=== PATIENT | male | born 1960 | race Caucasian/White ===

== ENCOUNTER 2019-09-27 12:24 | Emergency (ER) | payer BC, SELFPAY ==
[2019-09-27 12:37] VITALS: BP 140/95; PULSE 70; RESP 18; TEMP 36.5; O2SAT 97
--- NOTE | 2019-09-27 12:42 | ED.GENADULT ---
HPI - General Adult General Chief complaint: Nausea/Vomiting/Diarrhea Stated complaint: nauseau/achey Time Seen by Provider: 09/27/19 12:43 Source: patient and RN notes reviewed Mode of arrival: ambulatory Limitations: no limitations History of Present Illness HPI narrative: This is a 59 years old male presented office for evaluation of diarrhea since last night.Associate with generalized body aches, little congestions and nauseous. Denies vomiting. He able to keep fluids down. He did not eat anything for breakfast. His and grandkids are sick with similar symptoms. He would like a work excuse. Related Data Allergies Allergy/AdvReac Type Severity Reaction Status Date / Time No Known Allergies Allergy Verified 09/27/19 12:38 Review of Systems Review of Systems: Narrative: CONSTITUTIONAL: Denies fever. Report feeling achy ENT: Denies sore throat or ears pain CARDIOVASCULAR: Denies chest pain RESPIRATORY: Denies dyspnea, wheezing, cough GASTROINTESTINAL: Denies abdominal pain,vomiting or bloody stools GENITOURINARY: Denies urinary symptoms SKIN: Denies rash MUSCULOSKELETAL: Denies acute back pain NEUROLOGIC: Denies lightheaded PMFSH Surgical History Surgical History H/O rotator cuff surgery (~2009) Family History Family History Father Carcinoma of colon, Onset Age: 78 Social History Social History (Updated 09/27/19 @ 12:54 by HUMERA Mtz) Smoking status: Never smoker Alcohol intake: current Comments At time of signature, I agree with nursing past medical, surgical, social and family history. There is no relevant family history pertinent to the presenting complaint. Exam Narrative: Exam Narrative: GENERAL: This is a well-nourished, well-developed patient, in no apparent distress. EYES: Sclera clear/white. Vision is grossly intact. EARS: External ears normal, auditory canals clear and without drainage, TMs normal without perforation. Hearing grossly intact. NOSE: External nose normal with no obvious nasal discharge, nares without redness, no rhinorrhea. THROAT: Mucous membranes moist, posterior pharynx clear. NECK: Neck supple, non-tender without lymphadenopathy, masses or thyromegaly. CARDIOVASCULAR: Regular rate and rhythm without murmurs, gallops, or rubs. RESPIRATORY: Clear to auscultation. Breath sounds equal bilaterally. No wheezes, rales, or rhonchi. GASTROINTESTINAL:obese, Abdomen soft, non-tender, nondistended. Bowel sounds are active. No hepato-splenomegaly, or palpable masses. No guarding. SKIN: warm, intact with no suspicious lesions or rash, good texture and turgor. NEURO: awake, alert, and oriented to person, place and time. There were no obvious focal neurologic abnormalities. Steady gait Vernon Coma Scale Eye Opening: Spontaneous 4 Vernon Coma Scale Motor: Obeys Commands 6 Vernon Coma Scale Verbal: Oriented 5 Course Vital Signs Vital signs: Vital Signs Temperature 97.7 F 09/27/19 12:37 Pulse Rate 70 09/27/19 12:37 Respiratory Rate 09/27/19 12:37 Blood Pressure 140/95 H 09/27/19 12:37 Pulse Oximetry 97 09/27/19 12:37 Temperature 97.7 F 09/27/19 12:37 Pulse Rate 70 09/27/19 12:37 Respiratory Rate 09/27/19 12:37 Blood Pressure 140/95 H 09/27/19 12:37 Pulse Oximetry 97 09/27/19 12:37 Medical Decision Making MDM Narrative Medical decision making narrative: Discharge instructions reviewed with patient, as well as provided in writing per nursing staff. The instructions also include specific and strict return/GO TO THE ER as well as f/u information. All questions have been answered, and the patient deny any further questions with discharge and discharge plan. Vital Signs Vital Signs: Vital Signs Temperature 97.7 F 09/27/19 12:37 Pulse Rate 70 09/27/19 12:37 Respiratory Rate 18 09/27/19
== END 2019-09-27 12:54 | disposition home or self-care (01) ==
PROVIDERS: Emergency Provider Nurse Practitioner; PCP Family Medicine
DX: R19.7 Diarrhea, unspecified (principal); R03.0 Elevated blood-pressure reading, without diagnosis of hypertension
CPT/HCPCS: 87804; 99212; G0463

== ENCOUNTER 2020-06-26 12:30 | Emergency (ER) | payer BC, SELFPAY ==
--- NOTE | ~2020-06-26 | XR_ITS ---
EXAMINATION: XR chest 1V portable DATE: 06/26/2020 13:08 INDICATION: Cough. COVID-19 positive. TECHNIQUE: A single frontal view of the chest was obtained. COMPARISON: None. FINDINGS: There are patchy airspace opacities in all right lung zones and in left lower lung zone. No pleural effusion or pneumothorax. The heart size is normal. IMPRESSION: 1. Patchy airspace opacities in right lung and left lower lung zone, consistent with pneumonia. Reviewed, dictated and finalized at location A. [employer]
[2020-06-26 12:38] VITALS: BP 148/99; PULSE 80; RESP 16; TEMP 36.9; O2SAT 97
[2020-06-26 13:24] LABS: Basophils Percent Auto 0.2 % (0.2-1.2); Eosinophils Absolute Auto 0.1 K/mm3 (0-0.3); Eosinophils Percent Auto 2.7 % (0-4.4); Hematocrit 42.4 % (42.0-52.0); Hemoglobin 14.6 g/dL (14.0-18.0); Immature Granulocyte Absolute 0.02 K/mm3 (0.00-0.031); Immature Granulocyte Percent A 0.4 % (0-0.5); Lymphocytes Percent Auto 26.6 % (18.3-44.2); Mean Corpuscular HGB Conc 34.4 g/dl (32-36); Mean Corpuscular Hemoglobin 31.7 pg (26-34); Mean Corpuscular Volume 92.2 fl (80-100); Monocytes Absolute Auto 0.4 K/mm3 (0.1-0.6); Neutrophils Absolute Auto 2.8 K/mm3 (1.3-6.7); Neutrophils Percent Auto 62.1 % (45.5-73.1); Platelet Count Result 166 k/mm3 (150-375); Red Cell Distribution Width 12.2 % (11.5-14.5); White Blood Count 4.5 K/mm3 (4.5-10.0)
[2020-06-26 13:30] LABS: Alanine Aminotransferase 26 U/L (4-50); Alkaline Phosphatase 79 U/L (38-126); Anion Gap 9 mmol/L (8-16); Aspartate Amino Transferase 34 U/L (17-59); Bilirubin,Total 0.8 mg/dL (0.2-1.3); Blood Urea Nitrogen 13 mg/dL (9-20); Calcium 8.9 mg/dL (8.4-10.2); Carbon Dioxide 27 mmol/L (22-30); Chloride 100 mmol/L (98-107); Estimated CRCL calculation 98 ml/min; Estimated Glomerular Filt Rate > 60; Glucose 103 mg/dL (75-110); Potassium 4.4 mmol/L (3.4-5.0); Sodium 136 mmol/L (137-145)
[2020-06-26 13:31] LABS: D Dimer 0.46 ug/mL (<0.48)
[2020-06-26 13:40] VITALS: O2SAT 19
[2020-06-26 13:41] VITALS: BP 144/96; PULSE 84; RESP 18; O2SAT 98
--- NOTE | 2020-06-26 13:44 | ED.GENADULT ---
HPI - General Adult General Chief complaint: Upper Respiratory Infection Stated complaint: COVID + 06/18 STILL SYMPTOMATIC Time Seen by Provider: 06/26/20 12:48 Source: RN notes reviewed History of Present Illness HPI narrative: Patient presents emergency department from home for shortness of breath. Patient states he was diagnosed with COVID-19 approximately 1 week ago. He states since that time he said intermittent hot and cold flashes as well as a persistent cough and shortness of breath with exertion. He denies any chest pain abdominal pain nausea vomiting or any other symptoms. He called his PCP today because he not been feeling better and they directed him to come to the emergency department for further evaluation. Related Data Allergies Allergy/AdvReac Type Severity Reaction Status Date / Time No Known Allergies Allergy Verified 03/26/20 11:00 Review of Systems Review of Systems: Narrative: Gen.: See HPI Eyes: Denies eye pain or visual change ENT: Denies congestion Respiratory: Reports shortness of breath and cough CV: Denies chest pain or palpitations GI: Denies abdominal pain nausea, emesis or diarrhea Musculoskeletal: Denies back pain or muscle pain Neuro: Denies numbness, tingling, weakness or focal weakness Skin: Denies rash Except as documented, all other systems reviewed and negative PMFSH Past Medical History Medical History (Updated 06/26/20 @ 15:14 by Raimundo Nice DO) Patient denies significant medical history Surgical History Surgical History H/O rotator cuff surgery (~2009) Family History Family History Father Carcinoma of colon, Onset Age: 78 Social History Social History Smoking status: Never smoker Alcohol intake: current Exam Narrative: Exam Narrative: APPEARANCE: No acute distress, nontoxic, resting in bed EYES: EOMI HEENT: Normocephalic, atraumatic, OMM RESPIRATORY: No respiratory distress Clear to auscultation bilaterally with no rhonchi wheezing or rales. CARDIOVASCULAR: Regular rate and rhythm without murmurs rubs or gallops. ABDOMINAL: Soft, nontender, nondistended, no rebound or guarding MUSCULOSKELETAl: Moves all extremities. No clubbing, cyanosis or edema. NEURO: Awake and alert. Following commands, speech normal, no focal deficits SKIN:: Warm, dry. No rashes lesions or abrasions PSYCHIATRIC: Normal affect/mood, Course Course Emergency Course: Discussed with patient results of workup and diagnosis. Discussed need for follow-up with primary care, proper use of medication, and reasons to return to the emergency department. Patient understands and agrees to current treatment plan Vital Signs Vital signs: Vital Signs Temperature 98.4 F 06/26/20 12:38 Pulse Rate 80 06/26/20 12:38 Respiratory Rate 16 06/26/20 12:38 Blood Pressure 148/99 H 06/26/20 12:38 Pulse Oximetry 97 06/26/20 12:38 Temperature 98.4 F 06/26/20 12:38 Pulse Rate 84 06/26/20 13:41 Respiratory Rate 18 06/26/20 13:41 Blood Pressure 144/96 H 06/26/20 13:41 Pulse Oximetry 98 06/26/20 13:41 Medical Decision Making Vital Signs Vital Signs: Vital Signs Temperature 98.4 F 06/26/20 12:38 Pulse Rate 80 06/26/20 12:38 Respiratory Rate 16 06/26/20 12:38 Blood Pressure 148/99 H 06/26/20 12:38 Pulse Oximetry 97 06/26/20 12:38 Temperature 98.4 F 06/26/20 12:38 Pulse Rate 84 06/26/20 13:41 Respiratory Rate 18 06/26/20 13:41 Blood Pressure 144/96 H 06/26/20 13:41 Pulse Oximetry 98 06/26/20 13:41 Lab Data Result diagrams: 06/26/20 13:12 06/26/20 13:11 Labs: Lab Results 06/26/20 06/26/20 06/26/20 Range/Units 13:11 13:11 13:12 WBC 4.5 (4.5-10.0) K/mm3 RBC 4.60 (4.6-6.20) M/mm3 Hgb 14.6 (14.0-18.0) g/dL
[2020-06-26] MEDS: ALBUTEROL SULFATE (*SP) AEROSOL 1 PUFF 2 PUFF INHALATION (13:48)
[2020-06-26 15:22] VITALS: BP 140/89; PULSE 89; RESP 17; O2SAT 99
[2020-06-26] MEDS: predniSONE 20 MG TABLET 60 MG PO (15:22)
== END 2020-06-26 15:24 | disposition home or self-care (01) ==
PROVIDERS: Emergency Provider Emergency Medicine; PCP Family Medicine
DX: U07.1 COVID-19 (principal); J12.89 Other viral pneumonia
CPT/HCPCS: 36415; 71045; 80053; 85025; 85380; 99283; A9270; J7512

== ENCOUNTER → 2021-06-30 07:35 | Outpatient (CLI) | payer BC, SELFPAY ==
[2021-06-30 18:36] LABS: SARS-CoV-2 RNA PCR Negative
== END ==
PROVIDERS: PCP Family Medicine; Visit Provider Family Medicine
DX: R51.9 Headache, unspecified (principal); Z20.822 Contact with and (suspected) exposure to COVID-19
CPT/HCPCS: C9803; U0003; U0005

== ENCOUNTER 2021-09-12 02:14 | Day surgery (SDC) | payer BC, SELFPAY ==
[2021-09-03 09:30] VITALS: BMI 38.0
--- NOTE | 2021-09-11 16:12 | WPDANESEPP ---
Anes - Eval Pre Procedure Procedure: Operation Date: 09/12/21 11:30 Proposed Procedures p Screening Colonoscopy - Car Barrientos MD Date/Time: 09/11/21 16:12 Pre Op Diagnosis: neoplasm screening Patient Data Age: 61 Gender: M Height: 1.83 m Weight: 127.3 kg Allergies Allergy/AdvReac Type Severity Reaction Status Date / Time No Known Allergies Allergy Verified 09/03/21 09:29 Home Medications Medication Instructions Recorded Confirmed Type sildenafil 100 mg tablet 100 mg PO DAILY PRN #14 tablet 08/21/21 09/03/21 Rx cholecalciferol (vitamin D3) 1,250 1,250 mcg PO WEEKLY #14 cap 08/25/21 09/03/21 Rx mcg (50,000 unit) capsule Patient hx anesthesia problems: none Family hx anesthesia problems: none Results Review: All pre-operative results and documents have been reviewed as part of the pre-operative evaluation. [facility], [facility] Past Medical History Medical History Patient denies significant medical history Sept. 2020 disectomy and fusion c4-c7 Surgical History Surgical History H/O rotator cuff surgery (~2009) S/P cervical spinal fusion Family History Family History Father Carcinoma of colon, Onset Age: 78 Social History Social History Smoking status: Never smoker Alcohol intake: current Alcohol use details: every 2 weeks when bowling Substance use: never Substance use type: does not use Living arrangements: with family Spiritual care concerns: No Exam Day of Procedure 09/11/21 16:12
--- NOTE | 2021-09-12 10:32 | WPDANESEPPF ---
Anes - Initial Pre Proc Eval Procedure: Operation Date: 09/12/21 11:30 Proposed Procedures p Screening Colonoscopy - Car Barrientos MD Date/Time: 09/12/21 10:32 Surgeon: Car Barrientos MD Pre Op Diagnosis: neoplasm screening Patient Data Age: 61 Gender: M Height: 1.83 m Weight: 127.3 kg Allergies Allergy/AdvReac Type Severity Reaction Status Date / Time No Known Allergies Allergy Verified 09/03/21 09:29 Home Medications Medication Instructions Recorded Confirmed Type sildenafil 100 mg tablet 100 mg PO DAILY PRN #14 tablet 08/21/21 09/03/21 Rx cholecalciferol (vitamin D3) 1,250 1,250 mcg PO WEEKLY #14 cap 08/25/21 09/03/21 Rx mcg (50,000 unit) capsule Patient hx anesthesia problems: none Family hx anesthesia problems: none Results Review: All pre-operative results and documents have been reviewed as part of the pre-operative evaluation. [facility] Past Medical History Medical History Patient denies significant medical history Sept. 2020 disectomy and fusion c4-c7 Surgical History Surgical History H/O rotator cuff surgery (~2009) S/P cervical spinal fusion Family History Family History Father Carcinoma of colon, Onset Age: 78 Social History Social History Smoking status: Never smoker Alcohol intake: current Alcohol use details: every 2 weeks when bowling Substance use: never Substance use type: does not use Living arrangements: with family Spiritual care concerns: No Anes - Eval Final PreProcedure Day of Procedure 09/12/21 10:32 Patient weight: obese Heart: regular rate and rhythm Lungs: clear to auscultation Airway: Mallampati scale class II Neurological: alert and oriented Last oral intake: >/= 8 hours ASA classification: III Emergent: no Anesthetic plan: proceed Anesthesia type and monitoring: general GIVS and standard monitoring Results Review: All pre-operative results and documents have been reviewed as part of the pre-operative evaluation. Informed Consent: The patient's anesthetic plan and its attendant risks and benefits were discussed with the patient/family/POA. Questions were solicited and answers provided to the satisfaction of the patient/family/POA.
[2021-09-12 10:34] VITALS: BP 129/84; PULSE 101; RESP 20; TEMP 36.8; O2SAT 95
--- NOTE | 2021-09-12 10:34 | WPDGICN ---
Assessment and Plan Assessment and plan (1) Family history of colon cancer in father: Code(s): Z80.0 - Family history of malignant neoplasm of digestive organs Status: Acute Assessment and Plan: Patient presents for neoplasia screening. Family history is significant his father had colon cancer. Plan is for surveillance colonoscopies at 5 year intervals further recommendations may be given after endoscopy. GI Consult Note Consult date/time: 09/12/21 10:34 HPI: Krishna Torres is a 61 year old male Presents for screening colonoscopy. Patient's current weight appetite bowel movements are normal. He denies abdominal pain. He has had no bleeding. Family history is significant that his father had colon cancer. He presents today for neoplasia screening. Review of Systems Review of Systems: All systems reviewed & are unremarkable except as noted in HPI and below PMFSH Past Medical History Medical History Patient denies significant medical history Apr. 2020 disectomy and fusion c4-c7 Surgical History Surgical History H/O rotator cuff surgery (~2009) S/P cervical spinal fusion Family History Family History Father Carcinoma of colon, Onset Age: 78 Social History Social History Smoking status: Never smoker Alcohol intake: current Alcohol use details: every 2 weeks when bowling Substance use: never Substance use type: does not use Living arrangements: with family Spiritual care concerns: No Meds Home Medications and Allergies Home Medications Medication Instructions Recorded Confirmed Type sildenafil 100 mg tablet 100 mg PO DAILY PRN #14 tablet 08/21/21 09/03/21 Rx cholecalciferol (vitamin D3) 1,250 1,250 mcg PO WEEKLY #14 cap 08/25/21 09/03/21 Rx mcg (50,000 unit) capsule Allergies Allergy/AdvReac Type Severity Reaction Status Date / Time No Known Allergies Allergy Verified 09/12/21 10:33 Exam Narrative: Physical exam reveals patient to be alert. Vital signs stable. HEENT exam is unremarkable. Patient is anicteric. Lungs are clear to auscultation and percussion. Heart is without murmur or extra sounds. Abdominal exam bowel sounds are present soft nontender with no organomegaly. Digital external rectal exam is normal.
[2021-09-12] MEDS: LACTATED RINGERS 1,000 ML 150 ML IV CONT (10:48)
[2021-09-12 11:06] VITALS: BP 92/62; PULSE 75; RESP 15; O2SAT 92
[2021-09-12 11:16] VITALS: BP 99/68; PULSE 77; RESP 18; O2SAT 94
[2021-09-12 11:26] VITALS: BP 107/78; PULSE 67; RESP 17; O2SAT 95
== END 2021-09-12 11:30 | disposition home or self-care (01) ==
PROVIDERS: PCP Family Medicine; Visit Provider Internal Medicine Gastroenterology
PROC: 0DJD8ZZ Inspection of Lower Intestinal Tract, Via Natural or Artificial Opening Endoscopic (ICD-10-PCS; CPT 45378; principal; 2021-09-12 11:30)
DX: Z12.11 Encounter for screening for malignant neoplasm of colon (principal); K57.30 Diverticulosis of large intestine without perforation or abscess without bleeding; Z80.0 Family history of malignant neoplasm of digestive organs; Z98.1 Arthrodesis status; E66.9 Obesity, unspecified; Z68.37 Body mass index [BMI] 37.0-37.9, adult
CPT/HCPCS: 45378; J2001; J2405; J2704; J7120

== ENCOUNTER → 2022-03-20 08:25 | Outpatient (CLI) | payer BC, SELFPAY ==
--- NOTE | ~2022-03-20 | XR_ITS ---
XR knee RT min 4V DATE: 03/20/2022 09:00 INDICATION: Right knee pain and swelling TECHNIQUE: [place], lateral and AP and PA views COMPARISON: None FINDINGS: There is moderate loss of height of the medial compartment space. There is mild periarticul ar spurring primarily at the patellofemoral joint. No fracture or dislocation or joint effusion. No radiopaque intra-articular loose body or chondrocalc inosis. No periosteal reaction or bone destruction. 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 IMPRESSION: Mild osteoarthritis involving primarily the medial and patellofemor al compartments
--- NOTE | ~2022-03-20 | XR_ITS ---
XR thoracic spine 3V DATE: 03/20/2022 09:00 INDICATION: Back pain, shoulder pain TECHNIQUE: AP, lateral, swimmer views COMPARISON: None FINDINGS: There is anterior and interbody surgical spinal fusion at C4-C7. There is minimal levoscoliosis of the thoracic spine. There is mild degenerative spurring of the thoracic spine. No fracture or dislocation or bone destruc tion is detected. The thoracic pedicles are intact. No paraspinal soft tissue thickening. IMPRESSION: Minimal levoscoliosis Mild degenerative spurring Reviewed, dictated and finalized at location B.
--- NOTE | ~2022-03-20 | XR_ITS ---
XR shoulder LT min 2V DATE: 03/20/2022 09:00 INDICATION: Cervical radiculopathy, left shoulder pain. TECHNIQUE: 4 views of left shoulder. COMPARISON: None FINDINGS: There is mild degenerative spurring at the acromioclavicular joint. Normal alignment at the acromioclavicular and glenohumeral joints. No fracture or dislocation, periosteal reaction or bone d estruction. No abnormal left shoulder soft tissue calcification. IMPRESSION: Mild degenerative change at left acromioclavicular joint Reviewed, dictated and finalized at location B.
--- NOTE | ~2022-03-20 | XR_ITS ---
XR_CERV2-3V_CR DATE: 03/20/2022 09:00 INDICATION: Cervical radiculopathy TECHNIQUE: AP, open-mouth, lateral views COMPARISON: None FINDINGS: Status post anterior and interbody spinal surgical fusion at C4-C7. The cervical vertebrae are normally aligned. There is prominent anterior spurring but relative preser vation of disc space at C2-3. C3-4 interspace is well preserved. C1 and C2 are normally aligned and the odontoid process is intact. No fracture or dislocation or lock ed facet or prevertebral soft tissue swelling. IMPRESSION: Status post anterior and interbody surgical spinal fusion at C4-C7 Reviewed, dictated and finalized at Location A. Reviewed, dictated and finalized at location B.
== END ==
PROVIDERS: PCP Physician Assistant; Visit Provider Physician Assistant
DX: M54.12 Radiculopathy, cervical region (principal); Z98.1 Arthrodesis status; M19.012 Primary osteoarthritis, left shoulder; M17.11 Unilateral primary osteoarthritis, right knee
CPT/HCPCS: 72040; 72072; 73030; 73564

== ENCOUNTER 2022-03-20 09:00 | Outpatient (CLI) | payer BC, SELFPAY ==
[2022-03-20 18:44] LABS: Alanine Aminotransferase 26 U/L (6-50); Albumin Level 4.1 g/dL (3.5-5.1); Alkaline Phosphatase 76 U/L (38-126); Anion Gap 8 mmol/L (8-16); Aspartate Amino Transferase 31 U/L (17-59); Bilirubin,Total 0.5 mg/dL (0.2-1.3); Blood Urea Nitrogen 20 mg/dL (9-20); Calcium 9.1 mg/dL (8.4-10.2); Carbon Dioxide 28 mmol/L (22-30); Chloride 103 mmol/L (98-107); Cholesterol 279 mg/dL (0-200); Estimated Glomerular Filt Rate > 60; Glucose 99 mg/dL (65-110); HDL Direct 50 mg/dL; Potassium 4.9 mmol/L (3.4-5.0); Sodium 139 mmol/L (137-145); Triglycerides 171 mg/dL (<150)
[2022-03-20 18:56] LABS: LDL Cholesterol Direct 188 mg/dL
[2022-03-20 19:34] LABS: Vitamin D 25 Hydroxy 49.1 ng/mL
== END 2022-03-20 09:01 | disposition home or self-care (01) ==
LOC: ANHGOSHLAB 09:01
PROVIDERS: PCP Physician Assistant; Visit Provider Physician Assistant
DX: E53.8 Deficiency of other specified B group vitamins (principal); E55.9 Vitamin D deficiency, unspecified; E78.5 Hyperlipidemia, unspecified
CPT/HCPCS: 36415; 80053; 80061; 82306; 82607

== ENCOUNTER 2022-04-17 01:49 | Emergency (ER) | payer OTHER, BC, SELFPAY ==
[2022-04-17] VITALS (31 sets, daily range): BP systolic 137–181; BP diastolic 92–112; PULSE 61–95; RESP 10–20; TEMP 36.2; O2SAT 96–100
--- NOTE | ~2022-04-17 | XR_ITS ---
EXAMINATION: XR chest 2V DATE: 04/17/2022 02:22 INDICATION: Chest pain. Left arm and shoulder pain. TECHNIQUE: Frontal and lateral views of the chest were obtained. COMPARISON: Chest single view 06/26/2020 FINDINGS: There is mild atelectasis at left lung base. A calcified left lung nodule and calcified lef t hilar lymph nodes are consistent with old granulomatous disease. No pleural effusion or pneumothora x. The heart size is normal. There are changes of anterior fusion procedure in cervical spine. IMPRESSION: 1. Mild atelectasis at left lung base. Reviewed, dictated and finalized at location A.
--- NOTE | 2022-04-17 01:51 | ECG_ITS ---
Measurements Intervals [place] Rate: 69 P: 43 DC: 189 QRS: 2 QRSD: 97 T: 23 QT: 366 QTc: 394 Interpretive Statements SINUS RHYTHM POSSIBLE LEFT ATRIAL ENLARGEMENT BORDERLINE ECG NO PREVIOUS ECG AVAILABLE FOR COMPARISON Electronically Signed On 04-17-2022 7:01:30 CDT by Lázaro Marino D.O.
[2022-04-17] MEDS: KETOROLAC 30 MG/ML VIAL (*BKC) IV PUSH (02:02)
[2022-04-17 02:17] LABS: Basophils Percent Auto 0.2 % (0.2-1.2); Eosinophils Percent Auto 0.5 % (0-4.4); Hematocrit 47.7 % (42.0-52.0); Hemoglobin 15.8 g/dL (14.0-18.0); Immature Granulocyte Absolute 0.04 K/mm3 (0.00-0.031); Immature Granulocyte Percent A 0.5 % (0-0.5); Lymphocytes Absolute Auto 1.49 K/mm3 (0.9-3.2); Mean Corpuscular HGB Conc 33.1 g/dl (32-36); Mean Corpuscular Hemoglobin 31.6 pg (26-34); Mean Corpuscular Volume 95.4 fl (80-100); Mean Platelet Volume 9.8 fl (7.4-10.4); Monocytes Absolute Auto 0.6 K/mm3 (0.1-0.6); Monocytes Percent Auto 7.2 % (2.6-8.5); Neutrophils Absolute Auto 6.1 K/mm3 (1.3-6.7); Neutrophils Percent Auto 73.6 % (45.5-73.1); Platelet Count Result 201 k/mm3 (150-375); White Blood Count 8.3 K/mm3 (4.5-10.0)
[2022-04-17 02:29] LABS: Alanine Aminotransferase 29 U/L (6-50); Albumin Level 4.6 g/dL (3.5-5.1); Alkaline Phosphatase 82 U/L (38-126); Anion Gap 9 mmol/L (8-16); Aspartate Amino Transferase 26 U/L (17-59); Bilirubin,Total 0.7 mg/dL (0.2-1.3); Blood Urea Nitrogen 24 mg/dL (9-20); Calcium 9.4 mg/dL (8.4-10.2); Carbon Dioxide 27 mmol/L (22-30); Chloride 102 mmol/L (98-107); Estimated CRCL calculation 80 ml/min; Estimated Glomerular Filt Rate > 60; Glucose 126 mg/dL (65-110); Potassium 4.4 mmol/L (3.4-5.0); Sodium 138 mmol/L (137-145)
[2022-04-17 02:36] LABS: Prothrombin Time 13.2 Seconds (11.1-14.7)
[2022-04-17 02:39] LABS: Troponin I < 0.012 ng/mL (0.000-0.034)
--- NOTE | 2022-04-17 04:14 | ED.GENADULT ---
HPI - General Adult General Chief complaint: Extremity Problem,Nontraumatic Stated complaint: DIZZY, L SHOULDER PAIN, LUE NUMBNESS Time Seen by Provider: 04/17/22 01:49 History of Present Illness HPI narrative: Patient is a 61-year-old male who presents ER with reports of left arm numbness/burning shoulder pain. Patient reports he was working when he reached his left arm across his body and he developed sharp pain coming from his neck and back down his arm. He then got burning numbness in his arm. He then began to panic thinking he could be having heart attack despite having no chest pain. He then got dizzy because he is breathing fast. Symptoms improved on arrival here. Patient has history of cervical myelopathy and has been seeing his PCP for left upper extremity radicular pain that worsens when he reaches across his body. He is recently placed on prednisone and was improving his symptoms until he missed a dose and they came back. Related Data Home Medications Medication Instructions Recorded Confirmed mecobalamin (vitamin B12) 1,000 1,000 mcg PO DAILY 03/23/22 04/07/22 mcg chewable tablet Allergies Allergy/AdvReac Type Severity Reaction Status Date / Time No Known Allergies Allergy Verified 04/17/22 02:03 Review of Systems Review of Systems: All systems reviewed & are unremarkable except as noted in HPI and below Constitutional: Constitutional: Denies chills, Denies fatigue and Denies fever(s) ENT: Denies nasal congestion and Denies sore throat Cardiovascular: Cardiovascular: Denies chest pain, Denies rapid heart rate and Reports radiating jaw, neck or arm pain Respiratory: Respiratory: Denies cough and Denies dyspnea Gastrointestinal: Gastrointestinal: Denies abdominal pain, Denies nausea and Denies vomiting Musculoskeletal: Musculoskeletal: Denies arthralgias and Denies joint swelling Integumentary/Breasts: Skin/Breast: Denies erythema and Denies rash Neurologic: Denies syncope, Denies headache(s), Denies focal weakness and Reports numbness PMFSH Past Medical History Medical History Patient denies significant medical history Apr. 2020 disectomy and fusion c4-c7 Surgical History Surgical History H/O rotator cuff surgery (~2009) S/P cervical spinal fusion Family History Family History Father Carcinoma of colon, Onset Age: 78 Social History Social History Smoking status: Never smoker Alcohol intake: current Alcohol use details: every 2 weeks when bowling Substance use: never Substance use type: does not use Spiritual care concerns: No Exam Narrative: GENERAL: Well-appearing, well-nourished, and in no acute distress. HEAD: Normocephalic, atraumatic. ENT: Mucous membranes moist. CHEST: Clear to auscultation. No respiratory distress. HEART: Regular rate and rhythm. Normal peripheral pulses. ABDOMEN: Soft, nontender, nondistended. EXTREMITIES: Normal range of motion. No edema. SKIN: Warm, dry, no rash. NEURO: Alert and oriented x3. PSYCH: Normal mood and affect. Course Course Emergency Course: Troponin negative x2. Symptoms felt to be related to his chronic radicular symptoms as its been reproduced in the same manner in which she has described it to his PCP. Vital Signs Vital signs: Vital Signs Temperature 97.1 F L 04/17/22 01:49 Pulse Rate 78 04/17/22 01:49 Respiratory Rate 20 04/17/22 01:49 Blood Pressure 181/112 H 04/17/22 01:49 Pulse Oximetry 100 04/17/22 01:49 Oxygen Delivery Room Air 04/17/22 01:49 Temperature 97.1 F L 04/17/22 01:49 Pulse Rate 74 04/17/22 02:46 Respiratory Rate 13 04/17/22 02:46 Blood Pressure 141/100 H 04/17/22 02:46 Pulse Oximetry 97 04/17/22 02:46 Oxygen Deliver
[2022-04-17 05:02] LABS: Troponin I < 0.012 ng/mL (0.000-0.034)
== END 2022-04-17 06:50 | disposition home or self-care (01) ==
PROVIDERS: Emergency Provider Emergency Medicine; PCP Internal Medicine
DX: M54.12 Radiculopathy, cervical region (principal); Z98.1 Arthrodesis status; Z79.52 Long term (current) use of systemic steroids; Z79.1 Long term (current) use of non-steroidal anti-inflammatories (NSAID); Z79.891 Long term (current) use of opiate analgesic
CPT/HCPCS: 36415; 71046; 80053; 84484; 85025; 85610; 85730; 93005; 99284; J1885

== ENCOUNTER 2022-05-02 07:30 | Outpatient (CLI) | payer BC, SELFPAY ==
--- NOTE | ~2022-05-02 | MR_ITS ---
EXAMINATION: MR cervical spine wo con DATE: 05/02/2022 08:21 INDICATION: Cervical radiculopathy. TECHNIQUE: Magnetic resonance imaging (MRI) of the cervical spine was performed without intravenous c ontrast. Sequences included sagittal T2-weighted FSE, sagittal T2-weighted FS FSE, sagittal T1-weight ed FSE, axial MERGE, and axial T2-weighted FSE. COMPARISON: Cervical spine radiograph 03/20/2022 FINDINGS: Bone alignment is normal. There are changes of anterior fusion procedure from C4 to C7 with discectomies, interbody devices, and anterior plate and screws. Vertebral body heights are normal. T here is mildly decreased disc height at C7-T1. Osseous central spinal canal is developmentally small from C1 to C6. There is increased T2-weighted signal intensity in the spinal cord at C5-C6, consisten t with myelomalacia. There are bilateral mastoid effusions. The following disc levels are specificall y discussed: C2-C3: The disc does not extend beyond the endplate margin. There is mild bilateral uncovertebral rosanna nt osteoarthritis. There is severe bilateral facet joint osteoarthritis. There is mild right and mode rate left neural foraminal stenosis. There is mild central canal stenosis. C3-C4: The disc is bulging. There is severe bilateral uncovertebral joint osteoarthritis. There is mo derate right and severe left facet joint osteoarthritis. There is severe bilateral neural foraminal s tenosis. There is mild central canal stenosis. C4-C5: There is moderate bilateral uncovertebral joint hypertrophy. There is moderate right and mild left facet joint osteoarthritis. There is moderate bilateral neural foraminal stenosis. There is mild central canal stenosis. C5-C6: There is severe bilateral uncovertebral joint hypertrophy. There is moderate bilateral facet j oint osteoarthritis. There is moderate bilateral neural foraminal stenosis. There is mild central can al stenosis. C6-C7: There is severe bilateral uncovertebral joint hypertrophy. There is moderate right and mild le ft facet joint osteoarthritis. There is moderate bilateral neural foraminal stenosis. There is mild c entral canal stenosis. C7-T1: The disc does not extend beyond the endplate margin. There is severe right and moderate left u ncovertebral joint osteoarthritis. There is severe bilateral facet joint osteoarthritis. There is mod erate right and mild left neural foraminal stenosis. There is no central canal stenosis. IMPRESSION: 1. Moderate cervical spondylosis. 2. Anterior fusion procedure from C4 to C7. 3. Myelomalacia at C5-C6. Reviewed, dictated and finalized at location A.
== END 2022-05-02 07:31 | disposition home or self-care (01) ==
PROVIDERS: PCP Internal Medicine; Visit Provider Physician Assistant
DX: G95.9 Disease of spinal cord, unspecified (principal); M47.892 Other spondylosis, cervical region; Z98.1 Arthrodesis status
CPT/HCPCS: 72141

== ENCOUNTER 2023-10-29 14:00 | Outpatient (RCR) | payer BC, SELFPAY ==
--- NOTE | 2023-10-14 16:58 | PTOPEVAL1 ---
Assessment and note entered by Susan Alcaraz, PT, DPT Evaluation Information Assessment Status Evaluation Diagnosis R sided lumbar radiculopathy Subjective Information Pt states he was having some sciatic nerve pain that migrated down the back of his R leg, about 6 months ago. He states he now does not have any pain but has noticed himself walking with a limp. He reports a prior neck fusion and is starting to have some UE numbness and cramping in his BUEs. Pt works at a [employer] and has a very physically demanding job. Reported Pain Level Pain Score 0: Self Report Assessment PT Clinical Summary Krishna presents to therapy today for his initial evaluation with a diagnosis of R sided lumbar radiculopathy. Today he demonstrates good lumbar and BLE ROM, without an increase in pain. In supine, he demonstrates pelvic asymmetries with his LLE longer when compared to his alignment on the R side. His pelvic asymmetry leads to an uneven gait with a hardened heel strike unilaterally. Skilled therapy services are indicated to improve pelvic alignment, improve gait pattern, and to return to PLOF. Plan of Care Interventions Gait Training,Manual Therapy,Neuro Re-education, Patient/Caregiver Educati,Therapeutic Activities, Therapeutic Exercise PT Services Indicated Yes Treatment Frequency and 1x/wk for 6 visits Duration These treatments will address the objective and functional deficits as defined above. The patient will be advanced safely and appropriately in order for the patient to progress towards his/her prior level of function. Additional exercises will be introduced and as well as a comprehensive home exercise program upon discharge, if needed, ?to ensure carryover of functional gains achieved in the clinic. This treatment plan has been reviewed and agreement upon by the patient.
--- NOTE | 2023-10-29 15:52 | PTOPDC ---
Assessment and note entered by Susan Alcaraz, PT, DPT Evaluation Information Assessment Status Discharge Diagnosis R sided lumbar radiculopathy Subjective Information Pt continues to report no pain throughout most of his daily tasks. He still reports a limp during ambulation but it feels like it has gotten less dominate. He was on vacation for the last week and states he was not very diligent with his exercises. Reported Pain Level Pain Score 0: Self Report Assessment PT Clinical Summary Krishna presents to therapy today for his progress report after intermittent 2 week participation in his HEP per pt request. Today he demonstrates decreased L hip ROM when compared to his R side and mild weakness as well contributing to gait deviations. Pt states he has had limited hip rotation for his whole life and it has not caused pain before. He states he is going to follow up with his chiropractor instead of continue with therapy. Pt will be discharged at this time per his request.
== END 2023-11-01 09:18 | disposition home or self-care (01) ==
LOC: ANHGOSHPT 14:00
PROVIDERS: PCP Internal Medicine; Visit Provider Nurse Practitioner
DX: M54.16 Radiculopathy, lumbar region (principal)
CPT/HCPCS: 97110; 97161

== ENCOUNTER 2025-01-17 18:37 | Emergency (ER) | payer BC, SELFPAY ==
--- NOTE | 2025-01-17 18:39 | ED_ITS ---
HPI - General Adult General Chief complaint: Allergic Reaction Stated complaint: ALLERGIC REACTION Source: patient Mode of arrival: ambulatory Limitations: no limitations History of Present Illness HPI narrative: Patient is a pleasant 64-year-old male presenting with complaint of a suspected allergic reaction. Patient reports Sneezing followed by tongue swelling, throat swelling while at work around 9:00 a.m. this morning. States he took 2 Benadryl to eliminate in with improvement in symptoms. He stopped in here in his way home from work as he reports his tongue is beginning to Feel swollen again, throat feels normal. 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 He denies any known environmental allergies. He denies any known food or medication allergies. He denies any new medications. He denies any new foods. He reports history of same symptoms 1.5 years ago while in [place]--resolved without intervention--believes it was due to a lot of connolly. No CP, SOB, or any other complaints. Related Data Home Medications ?Medication ?Instructions ?Recorded ?Confirmed ?Last Taken ?Type sildenafil 100 mg tablet 100 mg PO Q24H PRN sexual activity 01/17/25 01/17/25 Unknown History vibegron 75 mg tablet (Gemtesa) 75 mg PO DAILY 01/17/25 01/17/25 Unknown History Allergies Allergy/AdvReac Type Severity Reaction Status Date / Time No Known Allergies Allergy Verified 01/17/25 18:41 Review of Systems Review of Systems: CONSTITUTIONAL: Denies body aches, fever, chills, or sweats. EYES: Denies visual changes, redness, or discharge. ENT: Denies rhinorrhea, congestion, sore throat, or otalgia. CARDIOVASCULAR: Denies chest pain, palpitations, or edema. RESPIRATORY: Denies cough or dyspnea. GASTROINTESTINAL: Denies abdominal pain, nausea, vomiting, or diarrhea. GENITOURINARY: Denies dysuria or hematuria. SKIN: Denies rash, itching, or wounds. MUSCULOSKELETAL: Denies back pain, joint pain, or myalgia. NEUROLOGIC: Denies headache, numbness, tingling, or weakness. PSYCH: Denies depression or anxiety. All systems reviewed & are unremarkable except as noted in HPI and below PMFSH Past Medical History Medical History Patient denies significant medical history 2020 disectomy and fusion [id number] Surgical History Surgical History History of surgical removal of meniscus of knee S/P cervical spinal fusion H/O rotator cuff surgery (~2009) Family History Family History Father Carcinoma of colon, Onset Age: 78 Social History Social History Social History: Caffeine-soda Smoking status: Never smoker Alcohol intake: current Alcohol use details: every 2 weeks when bowling/golf Substance use: never Substance use type: does not use Do You Feel Safe in your Home?: Yes Lack of Transportation: No Lack of Food: Never True Current Housing: I Have Housing Concerned About Future Housing: No Difficulty Paying Gas/Electric Bills: No Difficulty Paying for Meds: No Currently Unemployed: No Education: High School Diploma/GED Difficulty w/ Childcare or Family Care: No Living arrangements: with family Spiritual care concerns: No Exam Narrative: GENERAL: Well-appearing, well-nourished, and in no acute distress. HEAD: Normocephalic, atraumatic. EYES: EOMI. No redness or drainage. Conjunctivae normal. ENT: Mucous membranes pink and moist. Nares clear. No rhinorrhea. TMs normal bilaterally. Throat normal. Uvula midline. NECK: Normal AROM. Supple. No lymphadenopathy. CHEST: No respiratory distress. Clear to auscultation. HEART: Regular rate and rhythm. No murmur appreciated. Normal peripheral pulses. ABDOMEN: Soft, nontender, nondistended, normal active bowel sounds. MUSCULOSKELETAL: No bony tenderness. EXTREMITIES: Normal range of motion. No edema. SKIN: Warm, dry, no rash. Capillary refill normal. Normal skin turgor. NEURO: No focal deficits. Alert and oriented x3. Gait steady. PSYCH: Normal affect. No signs of depression or anxiety. HENMT: Mouth: Yes Normal oral and palatal mucosa present, Yes tongue normal, Yes oropharynx normal, Yes moist mucous membranes, No drooling, No lip abnormal, No Abnormal oral and palatal mucosa present and No tongue abnormal Throat: posterior oropharynx normal, uvula not displaced and no uvular edema Course Course Emergency Course: patient reports improvement in tongue swelling. I called ER and spoke with Dr. Obrien--case ran by him. He states if I sent pt to ER, they would observe him for 4 hours and then d/c home if no change. I offered this to patient, he declined. BP upon d/c 140/98, aware of need to f/u with PCP first thing in the morning. Please be advised this is a medical document. It is intended for [id number] communication. It is written in medical language and may contain unfamiliar abbreviations or verbiage. Medical documents are intended to carry relevant information, facts as evident, and the clinical opinion of the practitioner at the time of the encounter. This dictation may have been done utilizing a voice recognition system. Attempts have been made to correct errors. However, there may be uncorrected grammatical, spelling, and recognition errors present. Level of Care: Express Care Visit Vital Signs Vital signs: Vital Signs Temperature 98.6 F 01/17/25 18:46 Pulse Rate 82 01/17/25 18:46 Respiratory Rate 16 01/17/25 18:46 Blood Pressure 133/103 H 01/17/25 18:46 Pulse Oximetry 98 01/17/25 18:46 Temperature 98.6 F 01/17/25 18:46 Pulse Rate 82 01/17/25 18:46 Respiratory Rate 16 01/17/25 18:46 Blood Pressure 133/103 H 01/17/25 18:46 Pulse Oximetry 98 01/17/25 18:46 Medical Decision Making Vital Signs Vital Signs: Vital Signs Temperature 98.6 F 01/17/25 18:46 Pulse Rate 82 01/17/25 18:46 Respiratory Rate 16 01/17/25 18:46 Blood Pressure 133/103 H 01/17/25 18:46 Pulse Oximetry 98 01/17/25 18:46 Temperature 98.6 F 01/17/25 18:46 Pulse Rate 82 01/17/25 18:46 Respiratory Rate 16 01/17/25 18:46 Blood Pressure 133/103 H 01/17/25 18:46 Pulse Oximetry 98 01/17/25 18:46 Discharge Plan Discharge Clinical Impression: Tongue swelling, Allergic reaction, Elevated blood pressure reading in office with diagnosis of hypertension Patient Disposition: Home Condition: Improved Instructions: Antibiotic Form, General Allergic Reaction (ED) Additional Instructions: You can take Benadryl at night per the package instructions. Go straight to ER should your symptoms become worse or should any new symptoms develop Patient Language: Telugu Prescriptions: New prednisone 20 mg tablet 20 mg PO DAILY Qty: 18 0RF Rx Instructions: Take 3 tabs x 3 days then 2 tabs x 3 days then 1 tab x 3 days famotidine 20 mg tablet 20 mg PO DAILY Qty: 30 0RF cetirizine [All Day Allergy (cetirizine)] 10 mg tablet 10 mg PO DAILY Qty: 30 0RF No Action sildenafil 100 mg tablet 100 mg PO Q24H PRN (Reason: sexual activity) Gemtesa 75 mg tablet 75 mg PO DAILY tamsulosin 0.4 mg capsule 0.4 mg PO QHS Qty: 30 0RF Rx Instructions: LAST REFILL UNTIL SEEN atorvastatin 20 mg tablet 20 mg PO QHS Qty: 90 1RF Zepbound 15 mg/0.5 mL pen injector 15 mg subcut WEEKLY Qty: 6 3RF Follow-up/Referrals: Samantha Horvath NP [Primary Care Provider] - 01/18/25 Time of Disposition: 19:34
[2025-01-17 18:46] VITALS: BP 133/103; PULSE 82; RESP 16; TEMP 37; O2SAT 98
[2025-01-17] MEDS: FAMOTIDINE 20 MG TABLET PO (19:00)
[2025-01-17] MEDS: methylPREDNISolone SOD SUCC 125 MG VIAL IM (19:00)
[2025-01-17 19:40] VITALS: BP 140/98
== END 2025-01-17 19:42 | disposition home or self-care (01) ==
PROVIDERS: Emergency Provider Registered Nurse; PCP Nurse Practitioner
DX: T78.40XA Allergy, unspecified, initial encounter (principal); I10 Essential (primary) hypertension
CPT/HCPCS: 96372; 99213; A9270; G0463; J2919

== ENCOUNTER 2025-01-18 13:07 | Emergency (ER) | payer BC, SELFPAY ==
--- OUTSIDE RECORDS SUMMARY | 2025-01-18 13:41 | XMS_ITS | Data Portability ---
Author Organization [place] - [facility], Main Office Address [address] [place] [address] Care Team Providers Care General Assembler Installer Name Role Phone CLARISSA LIANG Primary Care Provider CLARISSA LIANG Referring Provider [phone] PURNIMA NULL Public Speaking Teacher [phone] Assessment Encounter Date Assessment Date Assessment LastModified by Organization Details LastModified Time 03/30/2024 03/30/2024 By history and exam the patient is noted to have left knee pain particularly medially he does have some mild to moderate osteoarthritis but could have a new meniscal tear due to the mechanism of the injury and his current symptoms and exam findings. We talked about treatment options today in detail he is going through the course of therapy he is not sure how many sessions he has left we will make sure he gets some more sessions to work on therapy for range of motion swelling control strengthening etc.. For now we discussed other treatment options we are going to start him on a course of oral prednisone followed by meloxicam 15 mg daily and a shot of cortisone he wanted proceed therefore under sterile conditions I injected the patient's left knee joint in the office with 4 cc 0.5% bupivacaine and 20 mg of Kenalog. Patient tolerated procedure well. He was wondering about getting an MRI scan we will see if we can get this approved to evaluate for possible medial meniscal pathology. Once the MRI scan is done he will see Dr. Gupta back for the results and talk about further treatment options if necessary. We did discuss the possibility of knee arthroscopy in detail including risks benefits limitations and alternatives and the procedure itself. The patient voiced understanding and agrees with the above plan he will call for any further problems difficulties or questions. [email or web address] Not available 03/30/2024 14:40:31 04/12/2024 04/12/2024 63-year-old male presents for follow-up of his left knee. He reports feeling better after the cortisone injection a course physical therapy. He got an MRI and is here to review that. He originally had his injury at work five weeks ago. He still has pain with doing steps and twisting. Most the pain is located over the medial aspect of the knee. He has tenderness palpation of the medial joint line. Range of motion 0-130. Pain in terminal flexion, positive Kalen's. 2B Mora's, stable posterior drawer, stable varus and valgus stress. MRI was reviewed, demonstrating a tear of the medial meniscus. He also has an avulsion of the ACL off the femur We reviewed his imaging findings and his diagnosis of meniscus tear and ACL sprain. He still has catching and popping mechanical symptoms in his knee. We discussed that given his persistent symptoms, the next step would be to consider a knee arthroscopy and partial meniscectomy. With regards his ACL deficiency, he does not do high impact running jumping or pivoting, so we will try continued conservative management. Risks, benefits, and alternatives to surgery were discussed with the patient. Risks include but are not limited to pain, stiffness, infection, bleeding, blood clot, injury to other structures including nerves or blood vessels, need for future surgery, and anesthesia risks. We discussed the goal of surgery is to improve symptoms but there is no guarantee of improvement and it is possible the patient's condition is worse after surgery. Patient agreed and would like to proceed. Not available 04/12/2024 16:50:25 05/19/2024 05/19/2024 63-year-old patient presents today for 1st postop follow-up after left knee arthroscopic medial meniscectomy on 05/09/[address] Gupta. He states he is doing well overall, 4/10 pain. He is taking pain medications as needed. He is still experiencing some tenderness around incision sites but has not experienced any catching or locking since surgery. Physical exam: Incisions are clean dry and intact without signs and symptoms of infection. Sutures removed and Steri-Strips were placed. Slight tenderness with palpitation around incision sites. No pain with knee range of motion. Range of motion 0-130. He works at a [employer] which involves uneven surfaces, stairs, and a dirty work environment. We will keep him off 1 more week for incisional healing and then he may return at light duty/desk work. We will see him back in 4 weeks for incision recheck. He is in agreement with this plan. Not available 05/19/2024 10:14:58 06/16/2024 06/16/2024 63-year-old patient presents today for postop follow-up after left knee arthroscopic medial meniscectomy on 05/09/[address] Gupta. He states he is doing well overall, 0/10 pain. He is not taking pain medications. He has not experienced any catching or locking since surgery. He is working light duty and would like a full release today. Physical exam: Incisions are well healed. No tenderness with palpitation around incision sites. No pain with knee range of motion. Range of motion 0-140. He is doing well overall. We will give him a full release for work. We discussed that we no longer need to see him back for rechecks unless new issues arise. He is in agreement with this plan. Not available 06/16/2024 09:51:53 06/21/2024 06/21/2024 63-year-old male presents for follow-up of his left knee status post partial meniscectomy on 05/09/2024. He reports he was doing better, had returned to work full duty. He no longer has catching symptoms in his knee. However when he does higher impact activities or activities for extended period time, he still has some soreness in the knee that feels like it did before surgery. He currently rates his pain as 4/10. He has no longer taking meloxicam, just taking ibuprofen as needed. Incisions are well healed. He has some tenderness over the medial and lateral joint line. Range motion 0-140, no catching or locking. At this point, he is progressing well. His mechanical symptoms are resolved. We discussed that his residual pain could be from pre-existing wear and tear which we would not address during the surgery. We will plan on some meloxicam and maintain his work full work status. We discussed that with more intense activities he may have some aggravation of his knee, and he should modify his activities as needed in addition to managing with anti-inflammatori es. We will see him back as needed if he has any persistent issues. Not available 06/21/2024 15:50:59 Plan of Treatment Reminders Order Date Submit Date Provider Last Modified By Organization Details Last Modified Time Details Appointments None recorded. Lab None recorded. Referral physical therapist referral - continue 2023 [facility], [address], [place], [address], 15:44:50 Procedures injection/ aspiration joint/burs a (PROC) 2023 [email or web address] In-Office Order, Internal Use Only DO Not Attach Compendium DO Not Attach Compendium, Do Not Delete/merge, [id number] 14:33:14 Surgeries None recorded. Imaging MRI, knee, w/o contrast 2023 [facility], [address] [place] [address] , [place], [address], 4 16:34:52 Medication Orders Mobic 15 mg tablet 2023 024 [email or web address] [id number], [address] [place], [place], [id number], 4 21:18:55 bupivacain e HCl 0.5 % (5 mg/mL) injection solution 2023 024 [email or web address] [facility], [address], [place], [id number], 4 15:05:39 Kenalog 10 mg/mL suspension for injection 2023 024 [email or web address] [facility], [address], [place], [id number], 4 15:05:39 meloxicam 15 mg tablet 2023 024 [email or web address] [facility], [address], [place], [id number], 4 15:05:39 prednisone 10 mg tablets in a dose pack 2023 024 [email or web address] [facility], [address] [facility], [place], [place], [id number], 4 11:38:53 Patient TargetsNo targets recorded. Patient InstructionsNo instructions recorded. Reason for Referral Physical Therapist Referral for Pain of left knee joint continue Referring Physician: Roberto Cardoso, Orthopedic Surgery, Encounter Date: 03/30/2024 Results Created Date Observation Date Name Description Value Unit Range Abnormal Flag Note LastModifiedBy Organization Detail LastModifiedTime 03/21/20 24 XR, knee No observ ation record ed. [email or web address] Not Available 2023 16:24:08 04/05/20 24 MRI, knee, w/o contr ast [facility] [address] [address] Patien t Name: PAULO MEJIA Access ion #: [id number] Sex: M : 1959 8 Dictat ed By: Martell medrano Attend ing Physic dudley: ROBERTO CARDOSO [facility] Physic dudley: ROBERTO CARDOSO Exam Date: 2023 10:45 AM Exam Name: MRI KNEE LT WO Admitt ing Diagno sis(es ): CLINIC AL HISTOR Y: pain of left knee joint. Fall injury 4 weeks ago. Anteri or, help desk engineer ior, and medial pain COMPAR NEGRO: Radiog raphs dated 2023. TECHNI QUE: Multis equenc e multip lanar MRI images of the left knee were obtain ed withou t contra stJovany CANELAIN GS: Crucia te ligame nts: ACL and PCL are intact and otherw ise unrema rkable . Extens or mechan ism: Karan ceps mechan ism and patell ar tendon are intact . Modera te edema in the karan ceps fat pad, may be sequel a of imping ement. Mild edema in the superi or aspect of Hoffa' s fat pad. Mild edema and small amount of fluid in the prepat ellar and superf icial infrap atella r bursa. Collat eral ligame nts: Grade 1 sprain of the MCL with edema and small amount of fluid along its superf icial fibers . No tear. Edema along the course of the latera l collat eral ill-de fined intras ubstan ce signal , likely sequel a of sprain . Menisc i: Horizo ntal tear involv ing the help desk engineer ior horn and body of the medial menisc us with signal abnorm ality extend ing to the femora l articu lar surfac e and free edge. Latera l menisc us is intact and otherw ise unrema rkable . Cartil age: Modera te chondr al fissur ing / fibril lation in the patell a involv ing the medial and latera l patell ar facets areas of full-t hickne ss or near full-t hickne ss chondr al loss of the centra l trochl ea. Chondr al thinni ng and fissur ing at the weight -beari ng zone of the medial femora l condyl e and adjace nt portio ns of the medial tibial platea u. Page 1 [facility] [address] [address] Patien t Name: PAULO MEJIA Access ion #: [id number] Sex: M : 1959 8 Dictat ed By: Martell Vega ell Attend ing Physic dudley: JANAE MEJIA Orderi ng Physic dudley: ROBERTO CARDOSO Exam Date: 2023 10:45 AM Exam Name: MRI KNEE LT WO Admitt ing Diagno sis(es ): Bones: No acute fractu re or focal marrow contus ion Joint fluid: Small to modera te joint effusi on with mild synovi tis. Other: Chroni c ossicl e along the help desk engineer ior aspect of the proxim al tibiof ibular joint measur ing up to 6.5 mm with adjace nt nonspe cific soft tissue edema, in close proxim ity to the poplit eus myoten dinous juncti on. Gangli on cyst along the anteri or aspect of the proxim al tibiof ibular joint measur ing up to 1.5 cm. IMPRES HANDY: 1. Horizo ntal tear of the medial menisc us. 2. Sprain s of the medial and latera l collat eral ligame nts. 3. Edema in the karan ceps fat pad and superi or aspect of Hoffa' s fat pad, likely sequel a of imping ement. 4. Patell ofemor al chondr omalac ia and chondr omalac ia in the medial compar tment. 5. Chroni c ossicl e adjace nt to the help desk engineer ior aspect of the proxim al tibiof ibular joint with adjace nt nonspe cific soft tissue edema. 6. Gangli on cyst along the anteri or aspect of the proxim al tibiof ibular joint. 7. Mild prepat ellar and superf icial infrap atella r bursit is . 8. Additi onal findin gs as detail ed above. Electr onical ly Signed by: Martell medrano at 2023 13:32: 20 PM [facility] [address] [place], [address], 04/05/2024 16:44:07 Result Notes None recorded. Problems Name Problem SNOMED Code Status Onset Date Resolution Date Notes Provider Name and Address Organization Details Recorded Time Prepatella r bursitis 45273912 Active Not Available [employer] 3 13:52:19 Pain of left knee joint 3947715457414 07 Active 2023 Essie talamantes, [place] [facility] 4 13:59:03 Derangemen t of left knee 3704443998241 9108 Active 2023 EUGENIO Joe [address] [facility], [facility] [address], [place], [address] , [place] [facility] 4 14:49:22 Osteoarthr itis of left knee joint 7167778095072 09 Active 2023 EUGENIO Joe [address] [facility], [facility] [address], [place], [address] , [facility] 4 14:49:41 Tear of medial meniscus of knee 730419472 Active 2023 Aracely talamantes, [facility] 4 14:22:37 Tear of medial meniscus of knee 914648144 Active 2023 Aracely talamantes, [facility] 4 14:22:48 Prepatella r bursitis 76441259 Active 2023 Belén Valdivia NP [address] [facility], [facility] [address], [place], [address] , [facility] 4 10:15:33 Problem Notes None recorded. Procedures Surgical History Date Name Laterality Status Provider Name and Address Organization Details Recorded Time Neck completed [facility] 03/30/2024 13:58:14 Rotator cuff surgery completed [facility] 03/30/2024 13:58:36 Imaging Results None recorded. Procedure Notes None recorded. Medical Equipment None Reported. Allergies No known drug allergies Medications Name Sig Start Date Stop Date Status Note LastModified by Organization Details LastModified Time prednisone 10 mg tablet 06/15 completed Not Available Not Available Not Available atorvastati n 20 mg tablet TAKE 1 TABLET BY MOUTH EVERY DAY AT BEDTIME active Not Available Not Available No t Available hydrocodone 5 mg-acetamin ophen 325 mg tablet TAKE 1 TABLET BY MOUTH EVERY 6 HOURS active Not Available Not Available No t Available meloxicam 15 mg tablet TAKE 1 TABLET BY MOUTH EVERY DAY active Not Available Not Available No t Available bupivacaine HCl 0.5 % (5 mg/mL) injection solution Take 20 mg by injection route. 2023 active Not Available Not Available Not Avai lable prednisone 10 mg tablets in a dose pack Take 1 tab by mouth, 3 times a day for 3 daysTake 1 tab by mouth 2 times a day for 2 daysTake 1 tab by mouth once a day for 1 day 04/06 completed Not Available Not Available Not Available tamsulosin 0.4 mg capsule TAKE 2 CAPSULES BY MOUTH DAILY active Not Available Not Available No t Available Kenalog 10 mg/mL suspension for injection Take 20 mg by injection route. 2023 active [facility]: 0003- [phone]- [phone] Not Available Not Available Not Available scopolamine 1 mg over 3 days transdermal patch 03/30 completed Not Available Not Available Not Available Zepbound 10 mg/0.5 mL subcutaneou s pen injector ADMINISTE R 10 MG UNDER THE SKIN WEEKLY 03/30 completed Not Available Not Available Not Available Zepbound 5 mg/0.5 mL subcutaneou s pen injector ADMINISTE R 5 MG UNDER THE SKIN WEEKLY 03/30 completed Not Available Not Available Not Available Zepbound 2.5 mg/0.5 mL subcutaneou s pen injector ADMINISTE R 2.5 MG UNDER THE SKIN WEEKLY FOR 4 WEEKS 03/30 completed Not Available Not Available Not Available Zepbound 15 mg/0.5 mL subcutaneou s pen injector ADMINISTE R 15 MG UNDER THE SKIN WEEKLY active Not Available Not Available No t Available Zepbound 12.5 mg/0.5 mL subcutaneou s pen injector ADMINISTE R 12.5 MG UNDER THE SKIN WEEKLY 03/30 completed Not Available Not Available Not Available Zepbound 7.5 mg/0.5 mL subcutaneou s pen injector ADMINISTE R 7.5 MG UNDER THE SKIN WEEKLY 03/30 completed Not Available Not Available Not Available Vitals Date Recorded Body height Body mass index (BMI) Body weight Provider Name and Address Organization Details Last Updated DateTime 03/30/2024 182.88 cm 33.9 kg/m2 533472.09 g Essie Villalta [employer] 03/30/2024 13:56:11 Date Recorded Body height Body mass index (BMI) Body weight Provider Name and Address Organization Details Last Updated DateTime 04/12/2024 182.88 cm 33.9 kg/m2 684203.09 g TORIE Marroquin [employer] 04/12/2024 13:50:31 Date Recorded Body height Body mass index (BMI) Body weight Provider Name and Address Organization Details Last Updated DateTime 05/19/2024 182.88 cm 33.9 kg/m2 840937.09 g Aracely Walters HI [employer] [facility] 05/19/2024 09:50:24 Date Recorded Body height Body mass index (BMI) Body weight Provider Name and Address Organization Details Last Updated DateTime 06/16/2024 182.88 cm 33.9 kg/m2 143787.09 g Renee OsegueraAMIE hunter L [place] [employer] [facility] 06/16/2024 08:58:07 Date Recorded Body height Body mass index (BMI) Body weight Provider Name and Address Organization Details Last Updated DateTime 06/21/2024 182.88 cm 33.9 kg/m2 550055.09 g Samantha ReynaDUONG thompson [place] [employer] [facility] 06/21/2024 15:01:46 Social History None recorded. Functional Status None recorded. Mental Status None recorded. Family History Nothing Reported Notes:CANCER : FATHER AND BR OTHER Medical History No medical history recorded. Past Encounters Encounter ID Performer Location Encounter Start Date Encounter Closed Date Diagnosis/Indication Diagnosis SNOMED-CT Code Diagnosis ICD10 Code Diagnosis Note [id number] Champ Gupta MD [facility] [address] [place] [address] 03/30/2024 13:39:18 03/30/2024 15:02:08 Pain of left knee joint 9617094813 44259 M25.562 Derangemen t of left knee 5641336836 6298230 M23.92 Osteoarthr itis of left knee joint 5668965998 40886 M17.12 [id number] Champ Gupta MD [facility] [address] [place] [address] 04/12/2024 13:47:44 04/12/2024 14:32:03 Derangement of left knee 4107365598 7795011 M23.92 Osteoarthr itis of left knee joint 6187617904 60785 M17.12 Pain of le ft knee joint 4991402536 61707 M25.562 Tear of me dial meniscus of knee 621895870 S83.242D [id number] hCamp Gupta MD [facility] [address] [place] [address] 05/19/2024 09:44:45 05/19/2024 10:17:18 Derangement of left knee 1742254955 3547974 M23.92 Tear of me dial meniscus of knee 244236293 S83.242D Osteoarthr itis of left knee joint 2916014077 43636 M17.12 Pain of le ft knee joint 4341179621 56544 M25.562 Prepatellar bursitis 170 35905 M70.42 [id number] Champ Gupta MD [facility] [address] [place] [address] 06/16/2024 08:54:53 06/16/2024 09:17:45 Derangement of left knee 8265424547 1943397 M23.92 Tear of me dial meniscus of knee 572823495 S83.242D [id number] Champ Gupta MD [facility] [address] [place] [address] 06/21/2024 14:59:39 06/21/2024 15:15:29 Tear of medial meniscus of knee 287067309 S83.242D Derangemen t of left knee 0036049753 5961150 M23.92 Osteoarthr itis of left knee joint 1455408196 44464 M17.12 Pain of le ft knee joint 1581286402 72243 M25.562 Prepatellar bursitis 170 29898 M70.42 Health Concerns Section Related Observation LastModified by Organization Detai ls LastModified Time None Recorded Concern Status LastModified by Organization Details LastModified Time None Recorded Advance Directives Directive None Recorded Payers Insurance Date Sequence Insurance Name Policy Number Policy Hoang Covered Member ID Hoang Member ID Guarantor Name 03/30/2024 NATHALIA Mejia 06/20/2024 1 [facility] [id number] Paulo Mejia [id number] Paulo Mejia 03/30/2024 NATHALIA [id number] [facility] Paulo Mejia Notes Date Note Type Note Provider Name and Address Organization Details Recorded Time 03/30/2024 text/html The patient is a 63-year-old male presents with left knee pain after an injury at work. He was in an area that was wet with some standing water there were wooden pallets that they were stepping on to move about the room to clean up the room. The patient states he jumped from 1 palate to the other that palate slipped when he landed on his left lower extremity it hit the wall he had an abrupt stop and twisted his left knee. He noted immediate pain medially that radiates into the posterior knee as well he also has little bit of pain in the anterior knee above the kneecap. He states the knee was little puffy but no significant effusion or swelling was noted denies any loss of motion but has pain with extremes of motion he was walking with a limp states it is pain is about a 6 on a scale of 1-10. When he goes up and down stairs he has significant pain or if he does any twisting or turning on the knee. Soon after that initial injury he states he was walking up some stairs when he felt a significant pop in the medial compartment and had a sudden stabbing pain as well. He has been walking with a limp hesitant to do much with the knee because of his pain. The injury occurred 3 weeks ago at work. Since that time he had started a course of physical therapy this has been ongoing for a couple of weeks now he has been taking [id number] ibuprofen 2 pills twice daily without significant relief. He has now been referred for initial evaluation treatment of his left knee pain he denies any previous knee pain prior to the injury. He does not report any instability in the knee but states because of the pain his knee wants to give out at times particularly with going up and down stairs or twisting or turning.The patient did have x-rays done at [facility] 1 month ago, this showed no acute fracture lesion or mass. The patient does have moderate narrowing of the medial compartment with mild varus deformity the left knee I reviewed the x-rays in detail today with the patient. New past medical history sheet was reviewed and signed on the intake sheet of today's date drug allergies current medications family social history previous surgical history 10 point review of systems was reviewed and discussed in detail today with the patient. Roberto Cardoso, EUGENIO [address] [facility], [facility] [address], [place], [address], [facility] 03/30/2024 14:50:06
--- OUTSIDE RECORDS SUMMARY | 2025-01-18 13:41 | XMS_ITS | Referral Summary ---
Author Organization [facility] Address 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 Mild degenerative disc disease C4-5. Plan Recommended treatment is the patient will require an anterior cervical discectomy and fusion at the level of C5-6 and C6-7. I do not feel the need for surgery should be related to his injury from February 26, 2020. There is clear documentation from the Physician Energy Management Specialist Tigre Cote on multiple occasions reporting pain in a similar distribution to what he is reporting now. It is also clearly documented in MRI report from [facility] on October 27, 2018 that he has myelopathy at the C5-6 level. Social History Tobacco Use Types Packs/Day Years Used Date Smoking Tobacco: Never Smokeless Tobacco: Never Alcohol Use Standard Drinks/Week Comments Yes 0 (1 standard drink = 0.6 oz pur e alcohol) PHQ-2 Answer Date Recorded PHQ-2 Total Score 2 05/23/2020 Personal Safety Answer Date Recorded Getting School Help Needed Not on file 10/22 Sex and Gender Information Value Date Recorded Sex Assigned at Not on file Legal Sex Male 7:52 AM DIRECTOR OF MANAGED SERVICES Gender Identity Not on file Sexual Orientation Not on file Last Filed Vital Signs Vital Sign Reading Time Taken Comments Blood Pressure 137/88 11/23/2022 8:04 PM CDT Pulse 86 11/23/2022 8:04 PM CDT Temperature 36.8 C (98.2 F) 11/23/2022 8:04 PM CDT Respiratory Rate 16 06/30/2021 12:10 PM DIRECTOR OF MANAGED SERVICES Oxygen Saturation 98% 11/23/2022 8:04 PM CDT Inhaled Oxygen Concentration - - Weight 133.4 kg (294 lb) 11/23/2022 8:04 PM CDT Height 182.9 cm (6') 11/23/2022 8:04 PM CDT Body Mass Index 39.87 11/23/2022 8:04 PM CDT Plan of Treatment Not on file Insurance [facility] ACCESS BLUE ACC CHOICE [facility] Care Teams Sommelier Relationship Specialty Start Date End Date Douglas Fischer MD [address] [place] [address] PCP - General Family Medicine 05/23/20 Douglas Fischer MD [address] [place] [address] Referring Physician Family Medicine 10/22/21
--- OUTSIDE RECORDS SUMMARY | 2025-01-18 13:41 | XMS_ITS | Clinical Summary ---
Author Organization [facility] Address [address] [place] [address] Care Team Providers Care High Voltage Electrician Name Role Phone Unavailable Primary Care Provider Unavailabl e Source Comments [facility],non-owned Affiliates and Associated Physician Practices is amultiple site organization consisting of ambulatory clinics and hospital sitesin [place], [place], [place] and [place]. This disclosure is being madepursuant to the Care Everywhere program and may not contain all information available regarding this patient. Last updated 18.[employer] [facility] Allergies No known active allergies Medications * Be aware that medications may not be up to date on this document. Alwaysverify current medications with the patient. No known medications Social History Tobacco Use Types Packs/Day Years Used Date Smoking Tobacco: Never Smokeless Tobacco: Never Sex and Gender Information Value Date Recorded Sex Assigned at Not on file Legal Sex Male 2:12 PM ASSISTANT BOOKKEEPER Gender Identity Not on file Sexual Orientation Not on file Last Filed Vital Signs Vital Sign Reading Time Taken Comments Blood Pressure 130/86 09/22/2018 5:40 PM ASSISTANT BOOKKEEPER Pulse 75 09/22/2018 5:40 PM ASSISTANT BOOKKEEPER Temperature 36.9 C (98.4 F) 09/22/2018 5:40 PM ASSISTANT BOOKKEEPER Respiratory Rate 16 09/22/2018 5:40 PM ASSISTANT BOOKKEEPER Oxygen Saturation 97% 09/22/2018 5:40 PM ASSISTANT BOOKKEEPER Inhaled Oxygen Concentration - - Weight 117.9 kg (260 lb) 09/22/2018 5:40 PM ASSISTANT BOOKKEEPER Height 182.9 cm (6') 09/22/2018 5:40 PM ASSISTANT BOOKKEEPER Body Mass Index 35.26 09/22/2018 5:40 PM ASSISTANT BOOKKEEPER Plan of Treatment Health Maintenance Due Date Last Done Comments JORGE L (AGES 45-75) - COL ON CA SCREENING 1961 COLON MONITORING 1961 COLONOSCOPY - COLON CA SCREENING 1961 CT COLONOGRAPHY - COLON CA SCREENING 1961 Colorectal Cancer Screening 1961 FIT - COLON CA SCREENING 1961 FLEX SIG - COLON CA SCREENING 1961 LIPID TESTING 1961 HIV SCREENING 1976 HEPATITIS C SCREENING 07/07/1979 DTAP/TDAP/TD VACCINES (1 - Tdap) 1980 PNEUMOCOCCAL VACCINE 50+ (1 of 1 - PCV) 2011 ZOSTER VACCINE (1 of 2) 2011 SCREENING FOR DIABETES 09/22/2018 COVID-19 VACCINE ( - 2023-2 5 season) 2024 DEPRESSION SCREENING 08/09/2024 INFLUENZA VACCINE (Season Ended) 2025 Respiratory Syncytial Virus (RSV) Vaccine Pt: or over 60 yrs (1 - 1-dose 75+ series) 2036 HEPATITIS B VACCINE Aged Out No longe r eligible based on patient's age to complete this topic HIB VACCINE Aged Out No longer eligi ble based on patient's age to complete this topic HPV VACCINE Aged Out No longer eligi ble based on patient's age to complete this topic MENINGOCOCCAL (Group B) VACC INE SHARED DECISION-MAKING Aged Out No longer eligibl e based on patient's age to complete this topic MENINGOCOCCAL GROUPS A/C/Y/W VACCINE Aged Out No longer eligible b ased on patient's age to complete this topic Insurance [employer]
--- OUTSIDE RECORDS SUMMARY | 2025-01-18 13:41 | XMS_ITS | Patient Health Record ---
Author Organization [facility] Address [id number] [place] [address] [address] [place] [address] Care Team Providers Care Occupational Health Nurse Manager Name Role Phone Champ Mills MD Unavailable Unavailable Reason For Referral No Information Plan Of Treatment No Information Insurance Providers Payer Name Payer Address Payer Phone Subscriber Number Group Number Insured Name Patient Relationship to Insured Coverage Start Date Coverage End Date Lo [employer] [address] [address] [place] [address] [id number] Krishna Torres Self - patient is the insured 0
--- OUTSIDE RECORDS SUMMARY | 2025-01-18 13:41 | XMS_ITS | Clinical Summary ---
Author Organization [facility] Address [address] [place] [address] Care Team Providers Care Electro Mechanical Engineer Name Role Phone Douglas Fischer MD Primary Care Provider Douglas Fischer MD Unavailable Allergies No known [...] There is clear documentation from the Physician Strap Machine Operator Automatic Tgire Cote on multiple occasions reporting pain in a similar distribution to what he is reporting now. It is also clearly documented in MRI report from [facility] on October 27, 2018 that he has myelopathy at the C5-6 level. Surgical History Surgery Date Site/Laterality Comments SHOULDER SURGERY 08/09/2009 - 08/08/2010 Right Family History Medical History Relation Name Comments Cancer Father Diabetes Father Relation Name Status Comments Father Social History Tobacco Use Types Packs/Day Years [...] on file Legal Sex Male 7:52 AM NIB ADJUSTER Gender Identity Not on file Sexual Orientation Not on file Obstetrics History Last Filed Vital Signs Vital Sign Reading Time Taken Comments Blood Pressure 137/88 11/23/2022 8:04 PM CDT Pulse 86 11/23/2022 8:04 PM CDT Temperature 36.8 C (98.2 F) 11/23/2022 8:04 PM CDT Respiratory Rate 16 06/30/2021 12:10 PM NIB ADJUSTER Oxygen Saturation 98% 11/23/2022 8:04 PM CDT Inhaled Oxygen Concentration - - Weight 133.4 kg (294 lb) 11/23/2022 8:04 PM CDT Height 182.9 cm (6') 11/23/2022 8:04 PM CDT Body Mass Index 39.87 11/23/2022 8:04 PM CDT Plan of Treatment Not on file Insurance [facility] ACCESS BLUE ACC CHOICE OOS [facility] Care Teams Electro Mechanical Engineer Relationship Specialty Start Date End Date Douglas Fischer MD [address] [place] [address] PCP - General Family Medicine 05/23/20 Douglas Fischer MD [address] [place] [address] Referring Physician Family Medicine 10/22/21
[2025-01-18 13:42] LABS: Basophils Percent Auto 0.1 % (0.2-1.2); Hematocrit 43.2 % (42.0-52.0); Hemoglobin 14.3 g/dL (14.0-18.0); Immature Granulocyte Absolute 0.04 K/mm3 (0.00-0.031); Immature Granulocyte Percent A 0.3 % (0-0.5); Lymphocytes Absolute Auto 0.96 K/mm3 (0.9-3.2); Lymphocytes Percent Auto 8.3 % (18.3-44.2); Mean Corpuscular HGB Conc 33.1 g/dl (32-36); Mean Corpuscular Hemoglobin 30.6 pg (26-34); Mean Corpuscular Volume 92.3 fl (80-100); Mean Platelet Volume 9.4 fl (7.4-10.4); Monocytes Absolute Auto 0.6 K/mm3 (0.1-0.6); Monocytes Percent Auto 4.9 % (2.6-8.5); Neutrophils Percent Auto 86.4 % (45.5-73.1); Platelet Count Result 182 k/mm3 (150-375); Red Blood Count 4.68 M/mm3 (4.6-6.20); Red Cell Distribution Width 13.1 % (11.5-14.5); White Blood Count 11.6 K/mm3 (4.5-10.0)
[2025-01-18] MEDS: methylPREDNISolone SOD SUCC 125 MG VIAL IV PUSH (13:48)
[2025-01-18] MEDS: FAMOTIDINE 20 MG/2 ML VIAL IV PUSH (13:48)
[2025-01-18] MEDS: diphenhydrAMINE HCl INJ 50 MG/ML VIAL IV PUSH (13:48)
--- NOTE | 2025-01-18 13:48 | ED.ALLEREA ---
HPI - Allergic Reaction General Chief complaint: Unspecified Stated complaint: speech changes that started yesterday Time Seen by Provider: 01/18/25 13:12 History of Present Illness HPI narrative: 64-year-old male with history of hypertension presenting to the emergency department for tongue swelling. He went to urgent care yesterday if the knows that he was having allergic reaction type symptoms including coughing sneezing, throat swelling and tongue swelling. This occurred around 9 in the morning when he was on his way to work. Denies any new allergen exposures, does not take any Sunil inhibitors or arbs or any other blood pressure medications. No new medication changes, no new pets, do laundry detergents, clothing or any other allergen exposures to his knowledge. He states he took [address] to urgent care and had a symptoms markedly improved but not fully resolved. Patient received several her medications at urgent care and was discharged home after brief observation. Patient has no history of anaphylaxis or angioedema. Was otherwise in his normal state of health but today return to the emergency department as he is having swelling in the right side of his tongue inhibiting his chewing of food and notes that he has some phonation changes. Denies any back of throat swelling, throat closing sensations, difficulty breathing, anterior lip swelling, fever, chills. No balance issues or ataxia. No history of stroke or TIA. Related Data Home Medications ?Medication ?Instructions ?Recorded ?Confirmed ?Last Taken ?Type sildenafil 100 mg tablet 100 mg PO Q24H PRN sexual activity 01/17/25 01/17/25 Unknown History vibegron 75 mg tablet (Gemtesa) 75 mg PO DAILY 01/17/25 01/17/25 Unknown History Allergies Allergy/AdvReac Type Severity Reaction Status Date / Time No Known Allergies Allergy Verified 01/17/25 18:41 Review of Systems Review of Systems: As reviewed above in HPI [facility] Past Medical History Medical History Patient denies significant medical history 2020 disectomy and fusion c4-c7 Surgical History Surgical History History of surgical removal of meniscus of knee S/P cervical spinal fusion H/O rotator cuff surgery (~2009) Family History Family History Father Carcinoma of colon, Onset Age: 78 Social History Social History Social History: Caffeine-soda Smoking status: Never smoker Alcohol intake: current Alcohol use details: every 2 weeks when bowling/golf Substance use: never Substance use type: does not use Do You Feel Safe in your Home?: Yes Lack of Transportation: No Lack of Food: Never True Current Housing: I Have Housing Concerned About Future Housing: No Difficulty Paying Gas/Electric Bills: No Difficulty Paying for Meds: No Currently Unemployed: No Education: High School Diploma/GED Difficulty w/ Childcare or Family Care: No Living arrangements: with family Spiritual care concerns: No Exam Narrative: GENERAL: [Well-appearing, well-nourished, and in no acute distress.] HEAD: [Normocephalic, atraumatic.] EYES: [PERRLA and EOMI.] ENT: Asymmetric tongue angioedema on the right side compared to flat on the left, no base of tongue swelling, no uvular edema, no mucosal or gingival irritation or inflammation. No anterior lip swelling, phonation changes are noted but no difficulty swallowing or intolerance to secretions. No tenderness of palpation of the tongue, no sensation changes to the tongue. NECK: Supple. CHEST: [Clear to auscultation. No respiratory distress.] HEART: [Regular rate and rhythm]. No murmur heard. [Normal peripheral pulses.] ABDOMEN: [Soft, nondistended], [nontender], [No rigidity or guarding] EXTREMITIES: Normal range of motion. [No edema.] SKIN: Warm, dry, no rash. NEURO: [No focal deficits]. Alert and oriented [x3.] PSYCH: [Normal mood and affect.] Course Course Emergency Course: Patient re-evaluated after initial treatment plan and his angioedema has significantly improved and now his tongue is almost symmetric without any enlargement on either side. He still has some residual fullness in the posterior lateral aspect but he feels improved. We discussed that he got a cocktail medications including epinephrine so will have to watch him for rebound symptoms and recurrence for another 4-6 hours which she was agreeable for. Discussed also other possible alternative such as hereditary angioedema or medication induced and no family members have had similar symptoms or angioedema and their history and patient has not tried any new medications is not on any medications that classically cause this. Given his allergic symptoms preceding this and his response to steroids and epinephrine most likely this is allergic angioedema response that is improving. Patient re-evaluated 5 hours into his ER visit and he had symptomatic resolution and did not have any recurrence. His tongue no longer had any signs of angioedema and he remained comfortable. We discussed next steps including going home with an ear nose and throat follow-up as well as prescriptions for epinephrine in case this happens again, Benadryl and Pepcid as well. Patient is comfortable with this plan and felt good going home with these return precautions and follow-up instructions in mind. Vital Signs Vital signs: Vital Signs Temperature 36.8 C 01/18/25 13:54 Pulse Rate 97 01/18/25 13:54 Respiratory Rate 18 01/18/25 13:54 Blood Pressure 144/81 H 01/18/25 13:54 Pulse Oximetry 97 01/18/25 13:54 Oxygen Delivery Room Air 01/18/25 13:54 Temperature 36.8 C 01/18/25 13:54 Pulse Rate 99 01/18/25 14:20 Respiratory Rate 18 01/18/25 14:20 Blood Pressure 146/98 H 01/18/25 14:20 Pulse Oximetry 100 01/18/25 14:20 Oxygen Delivery Room Air 01/18/25 13:54 MDM - Allergic Reaction MDM Narrative Medical decision making narrative: 64-year-old male presenting with signs and symptoms of allergic reaction verses isolated tongue angioedema. Examination reveals asymmetric tongue angioedema on the right side compared to flat tongue on the left, no base of tongue swelling, no uvular edema, no mucosal or gingival irritation or inflammation. No anterior lip swelling, phonation changes are noted but no difficulty swallowing or intolerance to secretions. No tenderness of palpation of the tongue, no sensation changes to the tongue. Patient has no history of any neurological disorders, does not have any findings on his neuro examination which points towards his tongue as the source of his phonation changes rather than an intracranial process. Do not suspect stroke and more suspected allergic reaction versus angioedema which could be idiopathic, bradykinin mediated, allergic in nature or hereditary. Will administer allergy medications including epinephrine, steroids, Pepcid and Benadryl and re-evaluated. Basic laboratory studies were drawn. If this does not improve we will proceed with TXA administration for potential resolution. Lab Data 01/18/25 13:36 01/18/25 13:36 Labs: Lab Results 01/18/25 Range/Units 13:36 WBC 11.6 H (4.5-10.0) K/mm3 RBC 4.68 (4.6-6.20) M/mm3 Hgb 14.3 (14.0-18.0) g/dL Hct 43.2 (42.0-52.0) % MCV 92.3 (80-100) fl MCH 30.6 (26-34) pg MCHC 33.1 (32-36) g/dl RDW 13.1 (11.5-14.5) % Plt Count 182 (150-375) k/mm3 MPV 9.4 (7.4-10.4) fl Immature Gran % (Auto) 0.3 (0-0.5) % Neut % (Auto) 86.4 H (45.5-73.1) % Lymph % (Auto) 8.3 L (18.3-44.2) % [facility] % (Auto) 4.9 (2.6-8.5) % Eos % (Auto) 0.0 (0-4.4) % Baso % (Auto) 0.1 L (0.2-1.2) % Lymph # (Auto) 0.96 (0.9-3.2) K/mm3 [facility] [place] # (Auto) 0.6 (0.1-0.6) K/mm3 Eos # (Auto) 0.0 (0-0.3) K/mm3 Baso # (Auto) 0.0 (0.0-0.1) K/mm3 Abs Immat Gran (auto) 0.04 H (0.00-0.031) K/mm3 Absolute Neuts (auto) 10.0 H (1.3-6.7) K/mm3 Absolute Nucleated RBC 0.000 (0.0-0.012) K/mm3 Nucleated RBC % 0.0 (0.0-0.2) % Sodium 136 L (137-145) mmol/L Potassium 4.2 (3.4-5.0) mmol/L Chloride 106 (98-107) mmol/L Carbon Dioxide 22 (22-30) mmol/L Anion Gap 8 (4-12) mmol/L BUN 22 H (9-20) mg/dL Creatinine 0.96 (0.7-1.3) mg/dL Estim Creat Clear Calc Not Reportable Estimated GFR > 60 (59 - ) Glucose 142 H (65-110) mg/dL Calcium 9.0 (8.4-10.2) mg/dL Magnesium 2.1 (1.6-2.3) mg/dL Total Bilirubin 0.8 (0.2-1.3) mg/dL AST 35 (17-59) U/L ALT 40 (6-50) U/L Alkaline Phosphatase 77 (38-126) U/L Total Protein 7.4 (6.3-8.2) g/dL Albumin 4.2 (3.5-5.1) g/dL Discharge Plan Discharge Clinical Impression: Angioedema of tongue Patient Disposition: Home Condition: Stable Instructions: Antibiotic Form, Angioedema (ED) Additional Instructions: Your tongue swelling is likely an allergic reaction versus angioedema. Your symptoms have resolved while here in the emergency department and are likely to remain stable without any recurrence but in the event that your tongue began swelling again, you develop throat closing sensations or difficulty in breathing take the epinephrine injection and return to the emergency department. You could also take Pepcid and diphenhydramine for mild allergic reaction symptoms. Follow-up with 1 of the provided ENT doctors for ER follow-up visit and they will also be able to further evaluate this to make sure that this is not something more serious although very low suspicion given improvement here today. Patient Language: Norwegian Prescriptions: New epinephrine [EpiPen 2-Mono] 0.3 mg/0.3 mL auto-injector 0.3 mg IM ONCE Qty: 2 0RF Rx Instructions: as a single dose; may repeat once famotidine [Pepcid] 20 mg tablet 20 mg PO BID PRN (Reason: Allergic Symptoms) Qty: 20 0RF diphenhydramine HCl 50 mg capsule 50 mg PO Q8H PRN (Reason: allergic reaction) Qty: 20 0RF No Action sildenafil 100 mg tablet 100 mg PO Q24H PRN (Reason: sexual activity) Gemtesa 75 mg tablet 75 mg PO DAILY prednisone 20 mg tablet 20 mg PO DAILY Qty: 18 0RF Rx Instructions: Take 3 tabs x 3 days then 2 tabs x 3 days then 1 tab x 3 days famotidine 20 mg tablet 20 mg PO DAILY Qty: 30 0RF cetirizine [All Day Allergy (cetirizine)] 10 mg tablet 10 mg PO DAILY Qty: 30 0RF tamsulosin 0.4 mg capsule 0.4 mg PO QHS Qty: 30 0RF Rx Instructions: LAST REFILL UNTIL SEEN atorvastatin 20 mg tablet 20 mg PO QHS Qty: 90 1RF Zepbound 15 mg/0.5 mL pen injector 15 mg subcut WEEKLY Qty: 6 3RF Follow-up/Referrals: Beth Ellsworth MD [Physician] - 2 Days (Isolated tongue angioedema) Rodrigo Castro MD [Physician] - 2 Days (Isolated tongue angioedema) Jb Boateng MD [Physician] - 2 Days (Isolated tongue angioedema) Samantha Horvath NP [Primary Care Provider] - Time of Disposition: 18:07
[2025-01-18 13:51] LABS: Alanine Aminotransferase 40 U/L (6-50); Albumin Level 4.2 g/dL (3.5-5.1); Alkaline Phosphatase 77 U/L (38-126); Anion Gap 8 mmol/L (4-12); Aspartate Amino Transferase 35 U/L (17-59); Bilirubin,Total 0.8 mg/dL (0.2-1.3); Blood Urea Nitrogen 22 mg/dL (9-20); Carbon Dioxide 22 mmol/L (22-30); Chloride 106 mmol/L (98-107); Estimated Glomerular Filt Rate > 60; Glucose 142 mg/dL (65-110); Magnesium 2.1 mg/dL (1.6-2.3); Potassium 4.2 mmol/L (3.4-5.0); Sodium 136 mmol/L (137-145); Total Protein 7.4 g/dL (6.3-8.2)
[2025-01-18 13:54] VITALS: BP 144/81; PULSE 97; RESP 18; TEMP 36.8; O2SAT 97
[2025-01-18 14:05] VITALS: PULSE 94; RESP 18; O2SAT 98
--- OUTSIDE RECORDS SUMMARY | 2025-01-18 14:10 | XMS_ITS | Referral Summary ---
Author Organization [facility] Address [address] [place] [address] Care Team Providers Care Steward/Stewardess Dining Room Name Role Phone Douglas Fischer MD Primary Care Provider [phone] Douglas Fischer MD Unavailable Allergies No known [...] There is clear documentation from the Physician Retrimmer Tigre Cote on multiple occasions reporting pain in a similar distribution to what he is reporting now. 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 Gender Identity Not on file Sexual Orientation Not on file Last Filed Vital Signs Vital Sign Reading Time Taken Comments Blood Pressure 137/88 11/23/2022 8:04 PM CDT Pulse 86 11/23/2022 8:04 PM CDT Temperature 36.8 C (98.2 F) 11/23/2022 8:04 PM CDT Respiratory Rate 16 06/30/2021 12:10 PM JACKET PREPARER Oxygen Saturation 98% 11/23/2022 8:04 PM CDT Inhaled Oxygen Concentration - - Weight 133.4 kg (294 lb) 11/23/2022 8:04 PM CDT Height 182.9 cm (6') 11/23/2022 8:04 PM CDT Body Mass Index 39.87 11/23/2022 8:04 PM CDT Plan of Treatment Not on file [facility] Care Teams Steward/Stewardess Dining Room Relationship Specialty Start Date End Date Douglas Fischer MD [address] [place] [address] PCP - General Family Medicine 05/23/20 Douglas Fischer MD [address] [place] [address] Referring Physician Family Medicine 10/22/21
--- OUTSIDE RECORDS SUMMARY | 2025-01-18 14:10 | XMS_ITS | Clinical Summary ---
Author Organization [facility] Address [address] [place] [address] Care Team Providers Care Counseling Director Name Role Phone Unavailable Primary Care Provider Unavailabl e Source Comments [facility],non-owned Affiliates and Associated Physician Practices is amultiple site organization consisting of ambulatory clinics and hospital sitesin [place], [place], [place] and [place]. This disclosure is being madepursuant to the Care Everywhere program and may not contain all information available regarding this patient. Last updated 18.[employer] [facility] Allergies No known active allergies Medications * Be aware that medications may not be up to date on this document. Alwaysverify current medications with the patient. No known medications Social History Tobacco Use Types Packs/Day Years Used Date Smoking Tobacco: Never Smokeless Tobacco: Never Sex and Gender Information Value Date Recorded Sex Assigned at Not on file Legal Sex Male 2:12 PM BARREL LATHE OPERATOR OUTSIDE Gender Identity Not on file Sexual Orientation Not on file Last Filed Vital Signs Vital Sign Reading Time Taken Comments Blood Pressure 130/86 09/22/2018 5:40 PM BARREL LATHE OPERATOR OUTSIDE Pulse 75 09/22/2018 5:40 PM BARREL LATHE OPERATOR OUTSIDE Temperature 36.9 C (98.4 F) 09/22/2018 5:40 PM BARREL LATHE OPERATOR OUTSIDE Respiratory Rate 16 09/22/2018 5:40 PM BARREL LATHE OPERATOR OUTSIDE Oxygen Saturation 97% 09/22/2018 5:40 PM BARREL LATHE OPERATOR OUTSIDE Inhaled Oxygen Concentration - - Weight 117.9 kg (260 lb) 09/22/2018 5:40 PM BARREL LATHE OPERATOR OUTSIDE Height 182.9 cm (6') 09/22/2018 5:40 PM BARREL LATHE OPERATOR OUTSIDE Body Mass Index 35.26 09/22/2018 5:40 PM BARREL LATHE OPERATOR OUTSIDE Plan of Treatment Health Maintenance Due Date [...]
--- OUTSIDE RECORDS SUMMARY | 2025-01-18 14:10 | XMS_ITS | Clinical Summary ---
Author Organization [facility] Building A Address [address] [place] [address] Care Team Providers Care Student Admissions Clerk Name Role Phone Douglas Fischer MD Primary Care Provider [phone] Douglas Fischer MD Unavailable Allergies No known [...] There is clear documentation from the Physician Twister Doffer Tigre Cote on multiple occasions reporting pain in a similar distribution to what he is reporting now. It is also clearly documented in MRI report from [facility] on October 27, 2018 that he has [...] on file Legal Sex Male 7:52 AM [employer] Gender Identity Not on file Sexual Orientation Not on file Obstetrics History Last Filed Vital Signs Vital Sign Reading Time Taken Comments Blood Pressure 137/88 11/23/2022 8:04 PM CDT Pulse 86 11/23/2022 8:04 PM CDT Temperature 36.8 C (98.2 F) 11/23/2022 8:04 PM CDT Respiratory Rate 16 06/30/2021 12:10 PM [employer]ARD [employer] Oxygen Saturation 98% 11/23/2022 8:04 PM CDT Inhaled Oxygen Concentration - - Weight 133.4 kg (294 lb) 11/23/2022 8:04 PM CDT Height 182.9 cm (6') 11/23/2022 8:04 PM CDT Body Mass Index 39.87 11/23/2022 8:04 PM CDT Plan of Treatment Not on file Insurance [facility] ACCESS BLUE ACC CHOICE OOS [facility] Care Teams Student Admissions Clerk Relationship Specialty Start Date End Date Douglas Fischer MD [address] [place] [address] PCP - General Family Medicine 05/23/20 Douglas Fischer MD [address] [place] [address] Referring Physician Family Medicine 10/22/21
[2025-01-18] MEDS: EPINEPHrine HCL INJ 1 MG/ML AMPUL 0.3 MG IM (14:17)
[2025-01-18 14:20] VITALS: BP 146/98; PULSE 99; RESP 18; O2SAT 100
== END 2025-01-18 18:30 | disposition home or self-care (01) ==
PROVIDERS: Emergency Provider Student in an Organized Health Care Education/Training Program; PCP Nurse Practitioner
DX: T78.3XXA Angioneurotic edema, initial encounter (principal)
CPT/HCPCS: 36415; 80053; 83735; 85025; 96372; 96374; 96375; 99284; J0171; J1200; J2919

== ENCOUNTER 2025-05-17 11:25 | Outpatient (CLI) | payer BC, SELFPAY ==
[2025-05-17 18:41] LABS: Hematocrit 46.5 % (42.0-52.0); Hemoglobin 15.3 g/dL (14.0-18.0); Immature Granulocyte Percent A 0.2 % (0-0.5); Lymphocytes Absolute Auto 1.89 K/mm3 (0.9-3.2); Mean Corpuscular HGB Conc 32.9 g/dl (32-36); Mean Corpuscular Hemoglobin 30.8 pg (26-34); Mean Corpuscular Volume 93.8 fl (80-100); Nucleated Red Blood Cells Absolute Auto 0.000 K/mm3 (0.0-0.012); Nucleated Red Blood Cells Perc 0.0 % (0.0-0.2); Platelet Count Result 188 k/mm3 (150-375); Red Blood Count 4.96 M/mm3 (4.6-6.20); White Blood Count 5.3 K/mm3 (4.5-10.0)
[2025-05-17 18:44] LABS: Alanine Aminotransferase 26 U/L (6-50); Albumin Level 4.3 g/dL (3.5-5.1); Alkaline Phosphatase 93 U/L (38-126); Anion Gap 8 mmol/L (4-12); Aspartate Amino Transferase 41 U/L (17-59); Bilirubin,Total 1.2 mg/dL (0.2-1.3); Blood Urea Nitrogen 13 mg/dL (9-20); Calcium 9.1 mg/dL (8.4-10.2); Carbon Dioxide 27 mmol/L (22-30); Chloride 102 mmol/L (98-107); Cholesterol 194 mg/dL (0-200); Estimated Glomerular Filt Rate > 60; Glucose 76 mg/dL (65-110); HDL Direct 60 mg/dL; Magnesium 2.4 mg/dL (1.6-2.3); Potassium 5.3 mmol/L (3.4-5.0); Sodium 137 mmol/L (137-145); Total Protein 7.8 g/dL (6.3-8.2); Triglycerides 69 mg/dL (<150)
[2025-05-17 19:23] LABS: Prostate Specific Antigen 3.3 ng/mL (< OR = 4.0); Thyroid Stimulating Hormone 1.310 uIU/mL (0.465-4.680)
[2025-05-17 19:58] LABS: Vitamin B12 236.0 pg/mL (239-931)
[2025-05-21 11:08] LABS: Free Testosterone (Direct) 8.9 pg/mL (6.6-18.1)
== END 2025-05-17 11:26 | disposition home or self-care (01) ==
LOC: ANHGOSHLAB 11:26
PROVIDERS: PCP Nurse Practitioner; Visit Provider Nurse Practitioner
DX: R25.2 Cramp and spasm (principal); R53.83 Other fatigue; Z12.5 Encounter for screening for malignant neoplasm of prostate; Z13.29 Encounter for screening for other suspected endocrine disorder; E53.8 Deficiency of other specified B group vitamins; E78.5 Hyperlipidemia, unspecified
CPT/HCPCS: 36415; 80053; 80061; 82607; 82746; 83735; 84153; 84402; 84403; 84443; 85025; G0103